=== PATIENT | male | born 1945 | race Caucasian/White ===

== ENCOUNTER 2019-10-02 04:19 | Inpatient (IN) ==
[2019-10-02] MEDS ORDERED: ONDANSETRON 4 MG/2 ML VIAL IV PRN (08:33)
[2019-10-02] MEDS ORDERED: hydrALAZINE 20 MG/1 ML VIAL IV PRN (08:33)
[2019-10-02] MEDS ORDERED: ALBUTEROL 2.5 MG/3 ML NEB RESP TX PRN (08:33)
[2019-10-02] MEDS ORDERED: SODIUM CHLORIDE 0.9% 1,000 ML IV PRN (08:36)
[2019-10-02] MEDS ORDERED: ACETAMINOPHEN 325 MG TABLET PO PRN (08:47)
[2019-10-02 08:59] LABS: Basophils % 0.1 % (0.0-0.8); Eosinophils % 0.1 % (0.00-10.9); Hematocrit 20.5 VOL% (42.0-52.0); Immature Granulocytes % 0.6 %; Immature Granulocytes Absolute 0.05 #; Lymphocytes # 1.4 10*3/uL (1.4-4.0); Lymphocytes % 15.6 % (21.2-54.2); Mean Corpuscular HGB Conc 28.8 GM/DL (32-36); Mean Corpuscular Volume 75.9 FL (87-102); Mean Platelet Volume 10.1 FL (9.6-12.0); NRBC # 0.03 10*3/uL; Neutrophils % 76.6 % (38.7-73.9); Platelet Count 313 T/CUMM (130-400); Red Cell Distribution Width 17.2 % (9.3-17.3); White Blood Count 8.8 T/CUMM (4-12)
[2019-10-02 09:04] LABS: Hemoglobin 5.9 GM/DL (14.0-18.0)
[2019-10-02 09:18] LABS: PT Patient Result 10.9 SECS (9.8-11.9)
[2019-10-02] MEDS: ENOXAPARIN 40 MG/0.4 ML SYRINGE SUBCUT SCH (09:26)
[2019-10-02] MEDS: PANTOPRAZOLE 40 MG VIAL IV SCH (09:26)
[2019-10-02 09:29] LABS: Albumin 2.5 G/DL (3.4-5.0); Bilirubin,Total 0.8 MG/DL (0.2-1.0); Calcium 8.3 MG/DL (8.5-10.1); Osmolality,Calculated 279.8 MOS/KG (273-304); Total Protein 6.8 G/DL (6.4-8.3)
[2019-10-02 09:31] LABS: ABG Base Excess 0.8 MMOL/L (-2.5-2.5); ABG HCO3 25.2 MMOL/L (20-26); ABG Oxygen Saturation 96.9 % (95-100); ABG PCO2 41.4 MM HG (35-48); ABG PO2 82.9 MM HG (80-95); ABG TCO2 24.5 MMOL/L (23-27); Allen Test Positive; Pt O2 Delivery Device BIPAP
[2019-10-02 09:32] LABS: Anisocytosis 2+; Platelet Estimate Normal
[2019-10-02 10:38] LABS: Ferritin 3.6 ng/ml (26-388)
[2019-10-02 10:40] LABS: Apearance,Urine CLEAR (Clear); Bacteria,Urine Occasional /HPF (Few); Bilirubin,Urine Negative (Negative); Blood, Urine Large mg/dL (Negative); Glucose,Urine (UA) Negative (Negative); Hyaline Casts,Urine 1 /LPF (0-3); Ketones,Urine Negative (Negative); Mucus,Urine Occasional /LPF (Occasional); Nitrite,Urine Negative (Negative); Protein,Urine 100 MG/DL; RBC,Urine 177 /HPF (0-4); Squamous Epithelial Cell,Urine Occasional /HPF (0-10); Urine Color Yellow (Yellow); Urine Urobilinogen < 2.0 EU/DL (0.2-1.0); WBC,Urine 2 /HPF (0-6)
[2019-10-02] MEDS ORDERED: AZITHROMYCIN INJ 500 MG in SODIUM CHLORIDE 0.9% 250 ML IV ONE (11:00)
[2019-10-02] MEDS ORDERED: ATORVASTATIN 40 MG TABLET PO SCH (11:00)
[2019-10-02] MEDS ORDERED: ALBUTEROL/IPRATROPIUM 3 ML NEB RESP TX ONE (11:11)
[2019-10-02] MEDS: ALBUTEROL/IPRATROPIUM 3 ML NEB RESP TX SCH ×2 (11:12→19:23)
[2019-10-02] MEDS: methylPREDNISolone SOD SUC 40 MG/1 ML VIAL IV SCH ×2 (11:18→17:39)
[2019-10-02] MEDS: cefTRIAXone 1,000 MG in SYRINGE 1 EACH IV SCH (11:21)
[2019-10-02] MEDS: ROSUVASTATIN 20 MG TABLET PO SCH (11:30)
[2019-10-02] MEDS: ASPIRIN CHEW 81 MG TABLET PO SCH (12:52)
[2019-10-02] MEDS ORDERED: FUROSEMIDE 40 MG/4 ML VIAL IV ONE (14:24)
[2019-10-02] MEDS ORDERED: NITROGLYCERIN 2% OINT 1 INCH/GM PACK TOP ONE (14:27)
[2019-10-02] MEDS ORDERED: MORPHINE 4 MG/1 ML VIAL IV PRN (14:27)
[2019-10-02] MEDS: PRIMIDONE 50 MG TABLET PO SCH (15:14)
[2019-10-02 16:56] LABS: CKMB % 1.9 %
[2019-10-02 16:57] LABS: Troponin I 1.98 NG/ML (0.00-0.045)
[2019-10-02] MEDS: INSULIN REGULAR 100 UNIT/ML SUBCUT SCH (17:39)
[2019-10-02 19:28] LABS: Hematocrit 25.2 VOL% (42.0-52.0); Hemoglobin 7.6 GM/DL (14.0-18.0)
[2019-10-02] MEDS ORDERED: METOPROLOL TARTRATE 25 MG TABLET PO SCH (21:00)
[2019-10-02 21:52] LABS: CKMB % 1.6 %
[2019-10-02 21:53] LABS: Troponin I 1.86 NG/ML (0.00-0.045)
[2019-10-03] MEDS: TAMSULOSIN 0.4 MG CAPSULE PO SCH ×3 (00:07→21:09)
[2019-10-03] MEDS: NEBIVOLOL 5 MG TABLET PO SCH ×3 (00:08→21:09)
[2019-10-03] MEDS: PRIMIDONE 50 MG TABLET PO SCH ×4 (00:08→21:08)
[2019-10-03] MEDS: BUDESONIDE/FORMOTEROL 160-4.5 INHALER 6 GM INH SCH ×3 (00:09→21:13)
[2019-10-03] MEDS: ALBUTEROL/IPRATROPIUM 3 ML NEB RESP TX SCH ×4 (00:19→19:40)
[2019-10-03] MEDS: INSULIN REGULAR 100 UNIT/ML SUBCUT SCH ×5 (00:38→21:10)
[2019-10-03] MEDS: methylPREDNISolone SOD SUC 40 MG/1 ML VIAL IV SCH ×3 (05:00→17:39)
[2019-10-03 08:24] LABS: Basophils % 0.1 % (0.0-0.8); Hematocrit 31.6 VOL% (42.0-52.0); Hemoglobin 9.9 GM/DL (14.0-18.0); Immature Granulocytes % 0.8 %; Immature Granulocytes Absolute 0.08 #; Lymphocytes # 0.9 10*3/uL (1.4-4.0); Lymphocytes % 8.5 % (21.2-54.2); Mean Corpuscular HGB Conc 31.3 GM/DL (32-36); Mean Corpuscular Volume 78.8 FL (87-102); Mean Platelet Volume 9.4 FL (9.6-12.0); NRBC # 0.05 10*3/uL; Neutrophils % 88.6 % (38.7-73.9); Platelet Count 263 T/CUMM (130-400); Red Blood Count 4.01 MC/CUMM (3.8-5.5); Red Cell Distribution Width 18.8 % (9.3-17.3); White Blood Count 10.3 T/CUMM (4-12)
[2019-10-03] MEDS: ENOXAPARIN 40 MG/0.4 ML SYRINGE SUBCUT SCH (08:29)
[2019-10-03 08:52] LABS: Calcium 8.7 MG/DL (8.5-10.1); Osmolality,Calculated 281.8 MOS/KG (273-304)
[2019-10-03] MEDS: AZITHROMYCIN 250 MG TABLET PO SCH (09:29)
[2019-10-03] MEDS: BICALUTAMIDE 50 MG TABLET PO SCH (09:30)
[2019-10-03] MEDS: ROSUVASTATIN 20 MG TABLET PO SCH (09:30)
[2019-10-03] MEDS: FUROSEMIDE 40 MG/4 ML VIAL IV SCH (09:31)
[2019-10-03] MEDS: PANTOPRAZOLE 40 MG VIAL IV SCH (09:31)
[2019-10-03] MEDS: cefTRIAXone 1,000 MG in SYRINGE 1 EACH IV SCH (09:36)
[2019-10-03 11:18] LABS: Apearance,Urine Slightly Hazy (Clear); Bilirubin,Urine Negative (Negative); Blood, Urine Large mg/dL (Negative); Glucose,Urine (UA) 150 mg/dL (Negative); Hyaline Casts,Urine 10 /LPF (0-3); Ketones,Urine Negative (Negative); Mucus,Urine Occasional /LPF (Occasional); Nitrite,Urine Negative (Negative); Protein,Urine >=500 MG/DL; RBC,Urine 670 /HPF (0-4); Squamous Epithelial Cell,Urine Occasional /HPF (0-10); Urine Color Yellow (Yellow); Urine Specific Gravity 1.015 (1.001-1.035); Urine Urobilinogen < 2.0 EU/DL (0.2-1.0); WBC,Urine 8 /HPF (0-6)
[2019-10-03] MEDS: amLODIPine 10 MG TABLET PO SCH (12:18)
[2019-10-03] MEDS: ASPIRIN CHEW 81 MG TABLET PO SCH (12:29)
[2019-10-04] MEDS: ALBUTEROL/IPRATROPIUM 3 ML NEB RESP TX SCH ×4 (02:40→20:52)
[2019-10-04] MEDS: methylPREDNISolone SOD SUC 40 MG/1 ML VIAL IV SCH ×3 (03:55→17:38)
[2019-10-04 04:25] LABS: Hematocrit 30.9 VOL% (42.0-52.0); Hemoglobin 9.7 GM/DL (14.0-18.0); Immature Granulocytes % 0.6 %; Immature Granulocytes Absolute 0.06 #; Lymphocytes # 1.1 10*3/uL (1.4-4.0); Lymphocytes % 10.6 % (21.2-54.2); Mean Corpuscular HGB Conc 31.4 GM/DL (32-36); Mean Corpuscular Volume 77.6 FL (87-102); Mean Platelet Volume 9.4 FL (9.6-12.0); Monocytes % 3.8 % (1.7-12.7); NRBC # 0.04 10*3/uL; Platelet Count 245 T/CUMM (130-400); Red Blood Count 3.98 MC/CUMM (3.8-5.5); Red Cell Distribution Width 19.1 % (9.3-17.3); White Blood Count 10.3 T/CUMM (4-12)
[2019-10-04 04:59] LABS: Calcium 8.8 MG/DL (8.5-10.1)
[2019-10-04] MEDS: INSULIN REGULAR 100 UNIT/ML SUBCUT SCH ×4 (07:13→21:46)
[2019-10-04] MEDS: amLODIPine 10 MG TABLET PO SCH (07:59)
[2019-10-04] MEDS: TAMSULOSIN 0.4 MG CAPSULE PO SCH ×2 (07:59→21:45)
[2019-10-04] MEDS: BICALUTAMIDE 50 MG TABLET PO SCH (07:59)
[2019-10-04] MEDS: ROSUVASTATIN 20 MG TABLET PO SCH (07:59)
[2019-10-04] MEDS: AZITHROMYCIN 250 MG TABLET PO SCH (08:00)
[2019-10-04] MEDS: ENOXAPARIN 40 MG/0.4 ML SYRINGE SUBCUT SCH (08:00)
[2019-10-04] MEDS: ASPIRIN CHEW 81 MG TABLET PO SCH (08:00)
[2019-10-04] MEDS: PRIMIDONE 50 MG TABLET PO SCH ×3 (08:00→21:47)
[2019-10-04] MEDS: PANTOPRAZOLE 40 MG TABLET PO SCH (08:00)
[2019-10-04] MEDS: NEBIVOLOL 5 MG TABLET PO SCH ×2 (08:01→21:45)
[2019-10-04] MEDS: FUROSEMIDE 40 MG/4 ML VIAL IV SCH (08:01)
[2019-10-04] MEDS: BUDESONIDE/FORMOTEROL 160-4.5 INHALER 6 GM INH SCH ×2 (08:01→22:27)
[2019-10-04] MEDS: cefTRIAXone 1,000 MG in SYRINGE 1 EACH IV SCH (09:56)
[2019-10-04] MEDS ORDERED: MAGNESIUM HYDROXIDE SUSP 30 ML UDCUP PO PRN (14:39)
[2019-10-05] MEDS: ALBUTEROL/IPRATROPIUM 3 ML NEB RESP TX SCH ×4 (01:24→19:00)
[2019-10-05] MEDS: methylPREDNISolone SOD SUC 40 MG/1 ML VIAL IV SCH ×3 (02:42→17:34)
[2019-10-05 05:52] LABS: Basophils % 0.1 % (0.0-0.8); Hematocrit 30.9 VOL% (42.0-52.0); Hemoglobin 9.5 GM/DL (14.0-18.0); Immature Granulocytes % 0.5 %; Immature Granulocytes Absolute 0.05 #; Lymphocytes # 0.9 10*3/uL (1.4-4.0); Mean Corpuscular HGB Conc 30.7 GM/DL (32-36); Mean Corpuscular Volume 79.8 FL (87-102); Mean Platelet Volume 9.4 FL (9.6-12.0); Monocytes % 2.9 % (1.7-12.7); NRBC # 0.02 10*3/uL; Neutrophils % 88.5 % (38.7-73.9); Platelet Count 255 T/CUMM (130-400); Red Blood Count 3.87 MC/CUMM (3.8-5.5); Red Cell Distribution Width 19.9 % (9.3-17.3)
[2019-10-05 06:12] LABS: Calcium 8.3 MG/DL (8.5-10.1); Osmolality,Calculated 283.1 MOS/KG (273-304)
[2019-10-05] MEDS: ENOXAPARIN 40 MG/0.4 ML SYRINGE SUBCUT SCH (09:44)
[2019-10-05] MEDS: BICALUTAMIDE 50 MG TABLET PO SCH (09:45)
[2019-10-05] MEDS: ASPIRIN CHEW 81 MG TABLET PO SCH (09:45)
[2019-10-05] MEDS: amLODIPine 10 MG TABLET PO SCH (09:45)
[2019-10-05] MEDS: PRIMIDONE 50 MG TABLET PO SCH ×3 (09:45→21:40)
[2019-10-05] MEDS: PANTOPRAZOLE 40 MG TABLET PO SCH (09:45)
[2019-10-05] MEDS: AZITHROMYCIN 250 MG TABLET PO SCH (09:45)
[2019-10-05] MEDS: ROSUVASTATIN 20 MG TABLET PO SCH (09:45)
[2019-10-05] MEDS: NEBIVOLOL 5 MG TABLET PO SCH ×2 (09:45→21:40)
[2019-10-05] MEDS: TAMSULOSIN 0.4 MG CAPSULE PO SCH ×2 (09:45→21:40)
[2019-10-05] MEDS: cefTRIAXone 1,000 MG in SYRINGE 1 EACH IV SCH (09:50)
[2019-10-05] MEDS: FUROSEMIDE 40 MG/4 ML VIAL IV SCH (09:54)
[2019-10-05] MEDS: INSULIN REGULAR 100 UNIT/ML SUBCUT SCH ×4 (09:56→21:41)
[2019-10-05] MEDS: BUDESONIDE/FORMOTEROL 160-4.5 INHALER 6 GM INH SCH ×2 (09:57→21:43)
[2019-10-06] MEDS: ALBUTEROL/IPRATROPIUM 3 ML NEB RESP TX SCH ×4 (01:44→20:10)
[2019-10-06] MEDS: methylPREDNISolone SOD SUC 40 MG/1 ML VIAL IV SCH ×3 (04:44→21:43)
[2019-10-06 06:59] LABS: Hematocrit 31.4 VOL% (42.0-52.0); Hemoglobin 9.6 GM/DL (14.0-18.0); Immature Granulocytes % 0.6 %; Immature Granulocytes Absolute 0.06 #; Lymphocytes # 1.8 10*3/uL (1.4-4.0); Mean Corpuscular HGB Conc 30.6 GM/DL (32-36); Mean Corpuscular Volume 80.5 FL (87-102); Mean Platelet Volume 10.3 FL (9.6-12.0); Monocytes % 5.5 % (1.7-12.7); NRBC # 0.02 10*3/uL; Neutrophils % 76.9 % (38.7-73.9); Platelet Count 229 T/CUMM (130-400); Red Cell Distribution Width 20.1 % (9.3-17.3); White Blood Count 10.5 T/CUMM (4-12)
[2019-10-06 07:22] LABS: Calcium 8.2 MG/DL (8.5-10.1); Osmolality,Calculated 285.2 MOS/KG (273-304)
[2019-10-06] MEDS: INSULIN REGULAR 100 UNIT/ML SUBCUT SCH ×4 (08:19→21:43)
[2019-10-06] MEDS: LACTATED RINGERS 1,000 ML IV SCH (09:47)
[2019-10-06] MEDS ORDERED: ETOMIDATE 20 MG/10 ML VIAL IV ONE (10:47)
[2019-10-06] MEDS ORDERED: LIDOCAINE 2% 5 ML VIAL ONE (10:47)
[2019-10-06] MEDS ORDERED: propofoL 200 MG/20 ML VIAL IV ONE (10:47)
[2019-10-06] MEDS: PRIMIDONE 50 MG TABLET PO SCH ×3 (12:53→21:42)
[2019-10-06] MEDS: BICALUTAMIDE 50 MG TABLET PO SCH (12:53)
[2019-10-06] MEDS: NEBIVOLOL 5 MG TABLET PO SCH ×2 (12:53→21:42)
[2019-10-06] MEDS: ROSUVASTATIN 20 MG TABLET PO SCH (12:53)
[2019-10-06] MEDS: ASPIRIN CHEW 81 MG TABLET PO SCH (12:54)
[2019-10-06] MEDS: amLODIPine 10 MG TABLET PO SCH (12:54)
[2019-10-06] MEDS: TAMSULOSIN 0.4 MG CAPSULE PO SCH ×2 (12:54→21:42)
[2019-10-06] MEDS: PANTOPRAZOLE 40 MG TABLET PO SCH (12:54)
[2019-10-06] MEDS: FUROSEMIDE 40 MG/4 ML VIAL IV SCH (12:57)
[2019-10-06] MEDS: BUDESONIDE/FORMOTEROL 160-4.5 INHALER 6 GM INH SCH ×2 (12:57→21:47)
[2019-10-06] MEDS: cefTRIAXone 1,000 MG in SYRINGE 1 EACH IV SCH (13:00)
[2019-10-06] MEDS: AZITHROMYCIN 250 MG TABLET PO SCH (17:51)
[2019-10-07] MEDS: ALBUTEROL/IPRATROPIUM 3 ML NEB RESP TX SCH ×2 (01:05→07:44)
[2019-10-07] MEDS: methylPREDNISolone SOD SUC 40 MG/1 ML VIAL IV SCH ×2 (04:53→13:22)
[2019-10-07 05:51] LABS: Calcium 8.2 MG/DL (8.5-10.1); Osmolality,Calculated 288.2 MOS/KG (273-304)
[2019-10-07 08:10] LABS: Hematocrit 33.8 VOL% (42.0-52.0); Hemoglobin 10.2 GM/DL (14.0-18.0); Immature Granulocytes % 0.6 %; Immature Granulocytes Absolute 0.05 #; Lymphocytes # 0.9 10*3/uL (1.4-4.0); Lymphocytes % 11.2 % (21.2-54.2); Mean Corpuscular HGB Conc 30.2 GM/DL (32-36); Mean Corpuscular Volume 81.4 FL (87-102); Mean Platelet Volume 9.8 FL (9.6-12.0); Monocytes % 2.7 % (1.7-12.7); Neutrophils % 85.5 % (38.7-73.9); Platelet Count 228 T/CUMM (130-400); Red Blood Count 4.15 MC/CUMM (3.8-5.5); Red Cell Distribution Width 20.3 % (9.3-17.3); White Blood Count 8.4 T/CUMM (4-12)
[2019-10-07] MEDS: FUROSEMIDE 40 MG/4 ML VIAL IV SCH (08:23)
[2019-10-07] MEDS: INSULIN REGULAR 100 UNIT/ML SUBCUT SCH ×2 (08:57→12:00)
[2019-10-07] MEDS ORDERED: AZITHROMYCIN 250 MG TABLET PO SCH (09:00)
[2019-10-07] MEDS: ASPIRIN CHEW 81 MG TABLET PO SCH (09:13)
[2019-10-07] MEDS: BICALUTAMIDE 50 MG TABLET PO SCH (09:13)
[2019-10-07] MEDS: ROSUVASTATIN 20 MG TABLET PO SCH (09:13)
[2019-10-07] MEDS: PANTOPRAZOLE 40 MG TABLET PO SCH (09:13)
[2019-10-07] MEDS: TAMSULOSIN 0.4 MG CAPSULE PO SCH (09:14)
[2019-10-07] MEDS: NEBIVOLOL 5 MG TABLET PO SCH (09:14)
[2019-10-07] MEDS: amLODIPine 10 MG TABLET PO SCH (09:14)
[2019-10-07] MEDS: PRIMIDONE 50 MG TABLET PO SCH (09:14)
[2019-10-07] MEDS: BUDESONIDE/FORMOTEROL 160-4.5 INHALER 6 GM INH SCH (09:21)
[2019-10-07] MEDS: LACTATED RINGERS 1,000 ML IV SCH (10:54)
[2019-10-07 11:51] VITALS: BP 140/57
[2019-10-07] MEDS: cefTRIAXone 1,000 MG in SYRINGE 1 EACH IV SCH (13:22)
== END 2019-10-07 13:40 | disposition home or self-care (01) | DRG 190 ==
LOC: EDBD → N.ICU 08:29 → SUATTDRO 08:29 → N.TELES 10-04 15:28
PROVIDERS: ADMIT Internal Medicine; ATTEND Internal Medicine